=== PATIENT | female | born 2000 | race Caucasian/White ===

== ENCOUNTER → 2024-10-17 | Outpatient (CLI) | payer OTHER, SELFPAY ==
[2024-10-17 11:08] LABS: Absolute Lymphocyte Count 2.05 X10^3/uL (0.83-4.51); Absolute Neutrophil Count 5.2 X10^3/uL (2.0-7.7); Basophil# 0.06 X10^3/uL; Basophil% 0.8 % (0-1); Eosinophil# 0.16 X10^3/uL; Hematocrit 39.5 % (37-47); Hemoglobin 12.7 g/dL (12.0-15.0); Lymphocyte # 2.05 X10^3/ul (0.83-4.51); Mean Corp Hgb Conc 32.2 g/dL (32-36); Mean Corpuscular Hgb 28.4 pg (27.0-32.0); Mean Corpuscular Volume 88.4 fL (81-99); Monocyte% 5.1 % (0-10); NRBC Flagged by Analyzer 0 % (0-5); Neutrophil % 65.8 % (47-70); Platelet Count 446 K/mm3 (150-450); RBC Distribution Width CV 13.6 % (11.6-14.6); RBC Distribution Width SD 43.8 fl (35.1-43.9); Red Blood Count 4.47 M/mm3 (4.2-5.4); White Blood Count 7.9 K/mm3 (4.4-11.0)
[2024-10-17 11:34] LABS: AST(SGOT) 19 U/L (15-37); Alanine Aminotransfer ALT/SGPT 24 U/L (13-56); Albumin, Serum 3.5 g/dL (3.2-5.0); Alkaline Phosphatase 52 U/L (45-117); Anion Gap 4 (5-15); BUN 12 mg/dL (7-18); BUN/Creat Ratio 16.9 RATIO (10-20); Calcium,Total 8.9 mg/dL (8.5-10.1); Chloride 109 mmol/L (98-107); Creatinine, Serum 0.71 mg/dL (0.55-1.02); EST Glomerular Filtration Rate 108 mL/min (>60); Est Glom Filt Rate - Afr Amer 131 mL/min (>60); Globulin 3.6 g/dL (2.2-4.2); Glucose 83 mg/dL (74-106); Potassium 4.1 mmol/L (3.5-5.1); Protein, Total 7.1 g/dL (6.4-8.2); Sodium Level 138 mmol/L (136-145)
[2024-10-17 13:50] LABS: Hepatitis B Surface Antibody Reactive; Hepatitis B Surface Antigen Non-Reactive (Nonreactive); Hepatitis C Antibody Non-Reactive (Nonreactive)
[2024-10-18 05:08] LABS: Hepatitis A AB, Total Positive (Negative); Hepatitis B Core Ab Total Negative (Negative)
== END | disposition home or self-care (01) ==
PROVIDERS: PCP Internal Medicine; Referring Provider Nurse Practitioner Acute Care; Visit Provider Nurse Practitioner Acute Care
DX: R12 Heartburn (principal); R05.9 Cough, unspecified; K21.9 Gastro-esophageal reflux disease without esophagitis; E66.9 Obesity, unspecified; K76.0 Fatty (change of) liver, not elsewhere classified
CPT/HCPCS: 36415; 80053; 85025; 86704; 86706; 86708; 86803; 87340

== ENCOUNTER 2024-12-19 06:28 | Day surgery (SDC) | payer OTHER, SELFPAY ==
[2024-12-19] VITALS (8 sets, daily range): BP systolic 136–144; BP diastolic 79–97; PULSE 72–84; RESP 16–20; TEMP 35.5–36.8; O2SAT 97–100; BMI 43.3
--- NOTE | 2024-12-19 06:48 | PCM.PRE.AN2 ---
ASA Classification* ASA Classification ASA Classification: 3 Assessment & Plan Anesthesia* Anesthesia Assessment Anesthesia Assessment: Discussed sedation and/or anesthesia options, risks, benefits, and alternatives with patient/parents/legal guardian/POA. Questions invited. The patient/parents/legal guardian/POA seems to understand and agrees to proceed with anesthesia plan. Reviewed the physical assessment, medical history, allergy history and patient home medications list prior to surgery/procedure/anesthetic and documented any changes. Performed airway and anesthesia risk assessments. Anesthesia Type Anesthesia Type: MAC History Source History Obtained from:: Patient and Chart Anesthesia Focused Assessment* Temperature: 97.5 F Pulse Rate: 81 Blood Pressure: 138/95 Respiratory Rate: 16 Pulse Ox: 100 Oxygen Delivery Method: Room Air Airway Assessment Mouth opens: >3 cm Mallampati Score: IV Teeth Condition: Caps/Crowns (Right top molar has a crown. It is tight.) Neck Range of motion (ROM): Limited ROM (Slight decrease in extension) Focused Labs Anesthesia Preop lab: CBC WBC 7.9 K/mm3 (4.4-11.0) 10/17/24 10:48 10/17/24 RBC 4.47 M/mm3 (4.2-5.4) 10/17/24 10:48 10/17/24 Hgb 12.7 g/dL (12.0-15.0) 10/17/24 10:48 10/17/24 Hct 39.5 % (37-47) 10/17/24 10:48 10/17/24 Plt Count 446 K/mm3 (150-450) 10/17/24 10:48 10/17/24 CHEMISTRY Potassium 4.1 mmol/L (3.5-5.1) 10/17/24 10:48 10/17/24 Sodium 138 mmol/L (136-145) 10/17/24 10:48 10/17/24 BUN 12 mg/dL (7-18) 10/17/24 10:48 10/17/24 Creatinine 0.71 mg/dL (0.55-1.02) 10/17/24 10:48 10/17/24 Glucose 83 mg/dL (74-106) 10/17/24 10:48 10/17/24 COAG Pre-Assessment Diagnosis/Proposed Procedure Planned Operative Procedure(s): EGD Anesthesia History Anesthesia History - graphic arts technician: Anesthesia History - graphic arts technician Hx Hospitalization No 12/18/24 09:23 Any Problems With Anesthesia No 12/18/24 09:23 Cholinesterase deficiency No 12/18/24 09:23 You/Your Family Experience No 12/18/24 09:23 fever (hyperthermia) with Relationship Recent Exposure to Contagious No 12/19/24 06:42 Disease Does patient have nerve No 12/18/24 09:23 stimulator Patient instructed to have device shut off --Does patient have Pacemaker No 12/19/24 06:42 or ICD? When Was Last Pacemaker Check QUESTION #4 FULL TEXT: You/Your Family Experience fever (hyperthermia) with Anesthesia Last Oral Intake Last Oral intake: Last Oral Intake NPO since 05:30 12/19/24 06:42 Meds taken in AM with sips of Yes 12/19/24 06:42 water? Meds patient instructed to see mar 12/19/24 06:42 take am of surgery Any additional information?: Yes Meds taken in AM with sips of water?: Yes PONV PONV - graphic arts technician: PONV - graphic arts technician Female Yes 12/18/24 09:23 HX of Motion Sickness No 12/18/24 09:23 HX of N/V After Surgery Yes 12/18/24 09:23 Non-Smoker Yes 12/18/24 09:23 Duration of Surgery greater No 12/18/24 09:23 than 60 minutes Number of Risk Factors 3 12/18/24 09:23 PONV Score Moderate Risk 12/18/24 09:23 Height & Weight Height & Weight: Anesthesia: Height & Weight Height 5 ft 8 in 12/19/24 06:42 Weight: 129.274 kg 12/19/24 06:42 Body Mass Index (BMI) 43.3 12/19/24 06:42 Respiratory Assessment Respiratory Assessment - graphic arts technician: Respiratory Tract Infection Hx - graphic arts technician Hx Respiratory Tract Infection No 12/18/24 09:23 STOP Sleep Apnea STOP Sleep Apnea - graphic arts technician: STOP Sleep Apnea - graphic arts technician Hx Hypertension No 12/18/24 09:23 Hx Sleep Apnea No 12/18/24 09:23 CPAP BIPAP Do you snore loudly (louder No 12/18/24 09:23 than talking or can be heard Do you often feel tired/ No 12/18/24 09:23 fatigued/ sleepy during daytime? Has anyone observed you stop No 12/18/24 09:23 breathing during sleep? STOP Results Negative 12/18/24 09:23 QUESTION #5 FULL TEXT : Do you snore loudly (louder than talking or can be heard through closed doors)? 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 Specify any problems Hx of Preganancy in last 3 No 12/18/24 09:23 Months Nurse Filling Out Transfusion VLEHMAN 12/18/24 09:23 & Questions: Date: 12/18/24 12/18/24 09:23 Time: 12/18/24 09:23 Patient unable to answer at this time (ie. confused, unrespo /Reproduction History /Reproductive History - graphic arts technician: /Reproductive Hx- graphic arts technician Hx Now Gestational Age (in weeks): EDC: Hx Hx Para [facility] History Wears glasses Depression Anxiety Thyroid disease Difficulty swallowing Gastric reflux Migraine Major depressive disorder Anxiety disorder Liver nodule Hypothyroidism Tawana's thyroiditis Obesity GERD (gastroesophageal reflux disease) Gastroparesis Home Medications ?Medication ?Instructions ?Recorded ?Last Taken ?Type escitalopram oxalate 10 mg tablet 10 mg PO QDAY 10/17/24 Unknown History (Lexapro) lorazepam 1 mg tablet (Ativan) 1 mg PO QDAY PRN anxiety 10/17/24 12/19/24 05:30 History pantoprazole 40 mg tablet,delayed 40 mg PO .COMPLEX #90 tabs 10/17/24 Unknown Rx release Allergy/AdvReac Type Severity Reaction Status Date / Time latex Allergy Rash Verified 12/19/24 06:42 phentermine Allergy Other Verified 12/19/24 06:42 levothyroxine AdvReac Other Verified 12/19/24 06:42 lurasidone (From Latuda) AdvReac Other Verified 12/19/24 06:42 Family History Other Barretts esophagus Breast cancer Cancer of heart Prostate cancer Renal cell carcinoma Surgical History History of surgery History of foot surgery History of eye surgery Social History Smoking Status: Never smoker Review of Systems (Anesthesia) ROS Narrative System reviewed and no additional complaints, except as documented.
[2024-12-19 07:04] LABS: Internal QC Validated? YES +Cl - CLEAR BKGD; Pregnancy, Urine Negative Negative
--- NOTE | 2024-12-19 07:15 | IMM_PTH ---
PATIENT: ES YANG LOC: EN U#:[id number] AGE/SX: 24/ ROOM: RE12/19/[address]: Dr. Kenneth Mcdaniel DO : 2000 BED: DIS: 12/19/2024 SPEC #: [id number] RECD: 12/19/24 11:37 STATUS: HENRY REQ #: [id number] YOHANA: 12/19/24 07:[address]: Kenneth Mcdaniel DEPT: IMMUNOHISTOCHEMISTRY RECD BY: Leobardo Dozier ENTERED: 12/19/24 11:38 SP TYPE: IMMUNO OTHR DR: Dr. Maia Andrade MD Tissues: B - Gastric mucous membrane Procedures: H Pylori (initial) PHYSICIAN & INSTITUTION [place] [id number] SPECIMEN INFORMATION: Tissue Source: B- Antrum biopsy Clinical Info: GERD, obesity, steatosis, liver, heartburn, cough Specimen Number: [id number] CPT code: 49895 METHODOLOGY: Deparaffinized sections of prefer/formalin-fixed tissue or PAP/DQ stained slides are incubated with monoclonal/polyclonal antibodies/oligonucleotide probes. Localization is made via biotin free immunoperoxidase method. Appropriate controls are performed and reacted as expected. Results on target cell population are indicated in the following table: RESULTS: ANTIBODY / CLONE RESULT Block B H Pylori (polyclonal) negative These tests were developed and their performance characteristics determined by [facility]. They may not have been cleared or approved by the U.S. Food and Drug Administration. The FDA has determined that such clearance or approval is not necessary. The above immunohistochemical/dualISH markers are ordered and reviewed by the Pathologist. INTERPRETATION: B. Antrum, biopsy: Negative for Helicobacter pylori organisms. 12/20/2024
--- NOTE | 2024-12-19 07:15 | EGD_PTH ---
PATIENT: ES YANG LOC: EN U#:[id number] AGE/SX: 24/F ROOM: RE12/19/[address]: Dr. Kenneth Mcdaniel DO : 2000 BED: DIS: 12/19/2024 SPEC #: [id number] RECD: 12/19/24 10:24 STATUS: HENRY REJulieta #: [id number] YOHANA: 12/19/24 07:[address]: Kenneth Mcdaniel DEPT: SURGICAL PATHOLOGY RECD BY: Sho Darden ENTERED: 12/19/24 11:20 SP TYPE: EGD BIOPSY MICHELLE DR: Dr. Maia Andrade MD Tissues: A - Duodenum, NOS B - Gastric mucous membrane C - Esophagus, NOS Procedures: Special Stain Group I Surgery Specimen Level IV Alcian Blue/PAS (control) HEADER OPERATION: EGD PRE-OP DIAGNOSIS: GERD, obesity, steatosis, liver, heartburn, cough TISSUE SUBMITTED: A- Duodenum biopsy, B- Antrum biopsy, C- Distal esophagus biopsy MICROSCOPIC DIAGNOSIS A. Duodenum, biopsy: Fragments of duodenal mucosa with mild Crystal's gland hyperplasia. B. Antrum, biopsy: Mild gastritis. See microscopic description and comment. C. Distal esophagus, biopsy: Fragments of gastroesophageal mucosa with chronic inflammation. Intestinal metaplasia (goblet cell metaplasia) not identified. See comment. 12/20/2024 COMMENT B. The results of immunohistochemistry for Helicobacter pylori will be reported separately ([id number]). C. Alcian blue/PAS stain with matched control is used in the evaluation of the specimen. The specimen predominantly consists of gastric mucosa. MICROSCOPIC DESCRIPTION Slides are reviewed. B. The specimen shows fragments of gastric mucosa with chronic inflammatory cell infiltrates in the lamina propria consisting of lymphocytes and plasma cells, consistent with mild chronic gastritis. GROSS DESCRIPTION A. Received in fixative is one container labeled with the patient's name and designated Duodenum biopsy. The specimen consists of two irregular fragments of light olson soft tissue that in aggregate measure 0.6 x 0.3 x 0.2 cm. The specimen is totally submitted in one cassette. B. Received in fixative is one container labeled with the patient's name and designated Antrum biopsy. The specimen consists of two irregular fragments of light olson soft tissue that in aggregate measure 0.5 x 0.3 x 0.2 cm. The specimen is totally submitted in one cassette. C. Received in fixative is one container labeled with the patient's name and designated Distal esophagus biopsy. The specimen consists of two irregular fragments of light olson soft tissue that in aggregate measure 0.7 x 0.4 x 0.3 cm. The specimen is totally submitted in one cassette. RICHY/ 12/19/2024 TC:3 CPT:09356o9,21328
--- NOTE | 2024-12-19 07:25 | HP.PCM_ITS ---
HPI - General General Date of Admission: 12/19/24 Date of Service: 12/19/24 Chief Complaint: abdominal pain, nausea, vomiting and diarrhea HPI Narrative ES YANG, is a 24 F who presentsES YANG, is a 24 F who presents to the office today for - father just 3 days ago - renal cell carcinoma - family h/o Del Castillo's - c/o life long HB and alternating constipation and diarrhea - c/o cough - She was on Semaglutide earlier this year and reports N/V was an issue at that time, reports minimal weight loss. She reports reflux symptoms are worse since discontinuing - denies any ongoing N/V - She has gained weight with discontinuing - about 25lbs - she was one omeprazole but cannot take with escitalopram - also reports was not effective - was on pantoprazole but ran out - this was helping - regurgitation - denies any emesis - denies any nausea - Caffeine - not every day - smokes weed - none in the past 8 months - denies smoking tobacco - psoriasis - denies any family h/o celiac disease - symptoms do not worsen with laying down - denies any bleeding - denies any change in bowel habits - basle line is alternating constipation and diarrhea - she does not exercise any longer - diet is poor - ABD US showed FNH - reports she had an MRI - family h/o fatty liver - EtOH denies - NSAIDS - IBU for migraines 800mg TIW Follow Up: [facility] Medical History Wears glasses Depression Anxiety Thyroid disease Difficulty swallowing Gastric reflux Migraine Major depressive disorder Anxiety disorder Liver nodule Hypothyroidism Tawana's thyroiditis Obesity GERD (gastroesophageal reflux disease) Gastroparesis Home Medications ?Medication ?Instructions ?Recorded ?Last Taken ?Type escitalopram oxalate 10 mg tablet 10 mg PO QDAY Unknown History (Lexapro) lorazepam 1 mg tablet (Ativan) 1 mg PO QDAY PRN anxiet y 10/17/24 12/19/24 05:30 History pantoprazole 40 mg tablet,delayed 40 mg PO .COMPLEX #9 0 tabs 10/17/24 Unknown Rx release Allergy/AdvReac Type Severity Reaction Status Date / Time latex Allergy Rash Verified 12/19/24 06:42 phentermine Allergy Other Verified 12/19/24 06:42 levothyroxine AdvReac Other Verified 12/19/24 06:42 lurasidone (From Latuda) AdvReac Other Verified 12/19/24 06:42 Family History Other Barretts esophagus Breast cancer Cancer of heart Prostate cancer Renal cell carcinoma Surgical History History of surgery History of foot surgery History of eye surgery Social History Smoking Status: Never smoker ROS Constitutional Constitutional: Denies fatigue, fever(s), poor appetite, weight gain or weight l oss Gastrointestinal Gastrointestinal: Denies belching, bloating, change in bowel habits, change in stool character, chewing difficulty, coffee ground emesis, constipation, cramping, diarrhea, dyspepsia, dysphagia, early satiety, excessive flatus, fecal incontinence, heartburn, hematemesis, hematochezia, hemorrhoids, loose stools, melena, nausea, odynophagia, rectal bleeding, tenesmus, vomiting or weight changes Vital Signs Vital Signs Vital Signs: 12/19/24 06:42 12/19/24 06:42 12/19/24 06:54 Temperature 97.5 F L 97.5 F L Temperature Source Temporal Pulse Rate 81 81 Respiratory Rate 16 16 Respiratory Pattern Normal Blood Pressure 138/95 H 138/95 H Blood Pressure Mean 109 Blood Pressure Source Monitor Blood Pressure Position Sitting Blood Pressure Location Right Arm Pulse Ox 100 100 Oxygen Delivery Method Room Air Room Air Weight Weight: 285 lb Body Mass Index (BMI) 43.3 Physical Exam Const alert, oriented x3, no apparent distress and healthy appearing General Appearance: cooperative GI normal to inspection, nondistended, normoactive bowel sounds, soft to palpation, non-tender and non-distended Percussion: normal to percussion Rectal Exam: deferred Results Lab / Micro Data Labs: Laboratory Results - last 24 hr 12/19/24 06:38: Urine Test Negative Assessment & Plan Assessment/Plan (1) GERD (gastroesophageal reflux disease): (2) Heartburn: (3) Gastroparesis: (4) Diarrhea: PLAN: Assessment and Plan Assessment and Plan (1) GERD (gastroesophageal reflux disease): Status: Acute (2) Obesity: Status: Acute Qualifiers: Obesity type: due to excess calories Obesity classification: adult class 3 (BMI >= 40) Serious obesity comorbidity presence: unspecified whether serious comorbidity present Body mass index: BMI 40.0-44.9 Qualified Code(s): E66.813 - Obesity, class 3; E66.01 - Morbid (severe) obesity due to excess calories; Z68.41 - Body mass index [BMI] 40.0-44.9, adult (3) Steatosis, liver: Status: Acute (4) Heartburn: Status: Acute (5) Cough: Status: Acute Qualifiers: Cough type: chronic Qualified Code(s): R05.3 - Chronic cough (6) Obesity: Status: Acute (7) Steatosis, liver: Status: Acute Orders: Orders Abdomen Limited Today E66.9 - Obesity, unspecified, K21.9 - Gastro-esophageal reflux disease without esophagitis, K76.0 - Fatty (change of) liver, not elsewhere classified, R05.9 - Cough, unspecified, R12 - Heartburn CBC W/Diff, Automated Today E66.9 - Obesity, unspecified, K21.9 - Gastro- esophageal reflux disease without esophagitis, K76.0 - Fatty (change of) liver, not elsewhere classified, R05.9 - Cough, unspecified, R12 - Heartburn Comprehensive Metabolic Profil Today E66.9 - Obesity, unspecified, K21.9 - Gastro-esophageal reflux disease without esophagitis, K76.0 - Fatty (change of) liver, not elsewhere classified, R05.9 - Cough, unspecified, R12 - Heartburn Hepatitis A AB, Total Today E66.9 - Obesity, unspecified, K21.9 - Gastro- esophageal reflux disease without esophagitis, K76.0 - Fatty (change of) liver, not elsewhere classified, R05.9 - Cough, unspecified, R12 - Heartburn Hepatitis B Core Ab Total Today E66.9 - Obesity, unspecified, K21.9 - Gastro- esophageal reflux disease without esophagitis, K76.0 - Fatty (change of) liver, not elsewhere classified, R05.9 - Cough, unspecified, R12 - Heartburn Hepatitis B Surface Antibody Today E66.9 - Obesity, unspecified, K21.9 - Gastro-esophageal reflux disease without esophagitis, K76.0 - Fatty (change of) liver, not elsewhere classified, R05.9 - Cough, unspecified, R12 - Heartburn Hepatitis B Surface Antigen Today E66.9 - Obesity, unspecified, K21.9 - Gastro- esophageal reflux disease without esophagitis, K76.0 - Fatty (change of) liver, not elsewhere classified, R05.9 - Cough, unspecified, R12 - Heartburn Hepatitis C Antibody Today E66.9 - Obesity, unspecified, K21.9 - Gastro-esopha geal reflux disease without esophagitis, K76.0 - Fatty (change of) liver, not elsewhere classified, R05.9 - Cough, unspecified, R12 - Heartburn Miscellaneous Lab Procedure Today E66.9 - Obesity, unspecified, K21.9 - Gastro- esophageal reflux disease without esophagitis, K76.0 - Fatty (change of) liver, not elsewhere classified, R05.9 - Cough, unspecified, R12 - Heartburn Referrals Bariatric Surgery Referral E66.9 - Obesity, unspecified, K21.9 - Gastro- esophageal reflux disease without esophagitis, K76.0 - Fatty (change of) liver, not elsewhere classified Medications: New pantoprazole 40 mg orally 30 minutes before breakfast every morning; 90 tabs 1RF Plan A 24-year-old female patient presents for a consultation, reporting lifelong symptoms of gastroesophageal reflux disease (GERD), including chronic cough, and nausea; additionally she experiences alternating constipation and diarrhea. Her past medical history is significant for Tawana's thyroiditis, and her family history includes Del Castillo's esophagus. She complains of persistent heartburn, a globus sensation, and a cough that worsens with oral intake. These symptoms have been present for years but have worsened since she discontinued Semaglutide in December. She also reports a 25-pound weight gain over the last 10 months. She denies any difficulty swallowing. In the past, she noted improvement in her symptoms while taking daily pantoprazole, and I will have her resume this medication. Dietary modifications and limiting the use of non-steroidal medications have been discussed. An esophagogastroduodenoscopy (EGD) has been scheduled. She also reports a history of focal nodular hyperplasia (FNH) and liver steatosis. I have discussed the potential for metabolic-associated fatty liver disease (MASLD) in detail and ordered an abdominal ultrasound, relevant laboratory tests, and elastography. She has also been provided a referral to Dr. Alvaro Wilson at the [facility] for further evaluation and management of obesity. Patient Instructions: 1. EGD 2. Resume pantoprazole 40mg daily, take 30 minutes before breakfast every morning 3. High fiber diet encouraged 4. Continue good water intake 5. Start a daily fiber supplement (Metamucil 2tsp once daily in 8 ounces of water OR Fibercon 2 tablets once daily with 8 ounces of water) 6. ABD US - complete at [place] for comparison to prior imaging 7. Elastography - [facility] 8. Referral to Dr. Wilson - B[facility] Surgery Clinic 9. Have labs completed at [facility] 10. Follow-up in office 2 weeks post EGD 11. I have encouraged dietary modifications and exercise to promote weight loss Plan Details Follow Up:
--- NOTE | 2024-12-19 07:51 | OP.EGD_ITS ---
Patient Name: Elvira Leahy Procedure Date: 12/19/2024 7:31 AM Date of : 2000 Age: 24 Procedure: Upper GI endoscopy Indications: Epigastric abdominal pain, Dyspepsia Providers: Kenneth Mcdaniel DO Referring MD: Maia Andrade Md Medicines: Monitored Anesthesia Care Patient Profile: This is a 24 year old female. Refer to note in patient chart for documentation of history and physical. Patient has symptoms of chronic abdominal distention, chronic epigastric abdominal pain, chronic nausea, chronic regurgitation, chronic throat burning and chronic vomiting. Complications: No immediate complications. Procedure: Pre-Anesthesia Assessment: - Prior to the procedure, a History and Physical was performed, and patient medications and allergies were reviewed. The patient is competent. The risks and benefits of the procedure and the sedation options and risks were discussed with the patient. All questions were answered and informed consent was obtained. Patient identification and proposed procedure were verified by the physician in the pre-procedure area. Mental Status Examination: alert and oriented. Airway Examination: normal oropharyngeal airway and neck mobility. Respiratory Examination: clear to auscultation. CV Examination: normal. Prophylactic Antibiotics: The patient does not require prophylactic antibiotics. Prior Anticoagulants: The patient has taken no anticoagulant or antiplatelet agents except for NSAID medication. ASA Grade Assessment: II - A patient with mild systemic disease. After reviewing the risks and benefits, the patient was deemed in satisfactory condition to undergo the procedure. The anesthesia plan was to use monitored anesthesia care (MAC). Immediately prior to administration of medications, the patient was re-assessed for adequacy to receive sedatives. The heart rate, respiratory rate, oxygen saturations, blood pressure, adequacy of pulmonary ventilation, and response to care were monitored throughout the procedure. The physical status of the patient was re-assessed after the procedure. After obtaining informed consent, the endoscope was passed under direct vision. Throughout the procedure, the patient's blood pressure, pulse, and oxygen saturations were monitored continuously. The Endoscope was introduced through the mouth, and advanced to the second part of duodenum. The upper GI endoscopy was accomplished without difficulty. The patient tolerated the procedure well. Scope In: 7:40:46 AM Scope Out: 7:45:09 AM Total Procedure Duration Time 0 hours 4 minutes 23 seconds Findings: The Z-line was irregular and was found 40 cm from the incisors. Biopsies were taken with a cold forceps for histology. Verification of patient identification for the specimen was done. Estimated blood loss was minimal. A medium-sized hiatal hernia was present. Localized mildly erythematous mucosa was found in the gastric antrum. Biopsies were taken with a cold forceps for histology. Verification of patient identification for the specimen was done. Estimated blood loss was minimal. Biopsies were taken with a cold forceps for Helicobacter pylori testing. Verification of patient identification for the specimen was done. Estimated blood loss was minimal. Patchy moderately erythematous mucosa without active bleeding and with no stigmata of bleeding was found in the first portion of the duodenum. Biopsies were taken with a cold forceps for histology. Verification of patient identification for the specimen was done. Estimated blood loss was minimal. Impression: - Z-line irregular, 40 cm from the incisors. Biopsied. - Medium-sized hiatal hernia. - Erythematous mucosa in the antrum. Biopsied. - Erythematous duodenopathy. Biopsied. Recommendation: - Discharge patient to home. - Resume previous diet. - Continue present medications. - Await pathology results. Procedure Code(s): --- Professional --- 24114, Esophagogastroduodenoscopy, flexible, transoral; with biopsy, single or multiple CPT copyright 2021 [employer]. All rights reserved. The codes documented in this report are preliminary and upon medical records coder review may be revised to meet current compliance requirements. Kenneth Mcdaniel DO 12/19/2024 7:51:09 AM This report has been signed electronically. Number of Addenda: 0 Note Initiated On: 12/19/2024 7:31 AM
--- NOTE | 2024-12-19 07:51 | OP.CCLET_ITS ---
12/19/2024 Maia Andrade Md Re : Upper GI endoscopy procedure for Elvira Leahy Dear Dr. Andrade This procedure was performed on December. My impressions and recommendations are as follows: Impressions : - Z-line irregular, 40 cm from the incisors. Biopsied. - Medium-sized hiatal hernia. - Erythematous mucosa in the antrum. Biopsied. - Erythematous duodenopathy. Biopsied. Recommendations : - Discharge patient to home. - Resume previous diet. - Continue present medications. - Await pathology results. My findings are described in the full procedure note, which is enclosed. If I can be of further assistance, please feel free to contact me at . Sincerely, Kenneth Mcdaniel, 12/19/2024 7:51:09 AM This report has been signed electronically.
--- NOTE | 2024-12-19 07:52 | PCM.POST.ANE ---
Anesthesia: Postop Eval I Current Vital Signs Temperature: 96 F Pulse Rate: 84 Blood Pressure: 138/79 Respiratory Rate: 20 Pulse Ox: 99 Oxygen Delivery Method: Room Air Assessment Airway patent: Yes Spontaneous unlabored respirations: Yes Mental status: Awake nausea: No Vomiting: No Anesthesia Complication: No Fluid Hydration Crystalloid volume administer (ml): 10 Total IV fluid infused: 10 Progress Note Anesthesia document: Postop Eval 1 completed: Yes
[2024-12-19] MEDS: Ondansetron 4 MG/2 ML Vial IV (08:00)
--- NOTE | 2024-12-19 10:42 | POSTOPAN2_ITS ---
Anesthesia Postop Eval I Sum Postop Eval Completion status Anesthesia document: Postop Eval 1 completed: Yes Anesthesia Postop Eval I Summary Anesthesia Postop Eval I Summary: Anesthesia Postop Eval I: Assessment Summary Airway patent Yes 12/19/24 07:53 COTTAGE ATTENDANT.[email or web address] Spontaneous unlabored Yes 12/19/24 07:53 COTTAGE ATTENDANT.[email or web address] respirations Mental status Awake 12/19/24 07:53 COTTAGE ATTENDANT.[email or web address] nausea No 12/19/24 07:53 COTTAGE ATTENDANT.JSWI Vomiting No 12/19/24 07:53 COTTAGE ATTENDANT.JSWI Anesthesia Postop Eval I: Fluid Summary Crystalloid volume administer 10 12/19/24 07:53 COTTAGE ATTENDANT.[email or web address] (ml) Colloids volume administered ( ml) Blood Product volume administered (ml) Total IV fluid infused 10 12/19/24 07:53 COTTAGE ATTENDANT.[email or web address] Anesthesia Postop Eval I: Summary Notes Anesthesia Complication No 12/19/24 07:53 COTTAGE ATTENDANT.JSWI Anesthesia Complication Comment: Post-operative progress note Anesthesia: Postop Eval II Evaluation Mental status: Awake and Calm Pain Level: 0 nausea: No Vomiting: No
--- NOTE | 2024-12-19 10:42 | PCM.POSTANE2 ---
Anesthesia Postop Eval I Sum Postop Eval Completion status Anesthesia document: Postop Eval 1 completed: Yes Anesthesia Postop Eval I Summary Anesthesia Postop Eval I Summary: Anesthesia Postop Eval I: Assessment Summary Airway patent Yes 12/19/24 07:53 HEEL [email or web address] Spontaneous unlabored Yes 12/19/24 07:53 HEEL BURNISHER.JSWI respirations Mental status Awake 12/19/24 07:53 HEEL BURNISHER.[email or web address] nausea No 12/19/24 07:53 HEEL BURNISHER.JSWI Vomiting No 12/19/24 07:53 HEEL BURNISHER.[email or web address] Anesthesia Postop Eval I: Fluid Summary Crystalloid volume administer 10 12/19/24 07:53 HEEL BURNISHER.JSWI (ml) Colloids volume administered ( ml) Blood Product volume administered (ml) Total IV fluid infused 10 12/19/24 07:53 HEEL BURNISHER.JSWI Anesthesia Postop Eval I: Summary Notes Anesthesia Complication No 12/19/24 07:53 HEEL BURNISHER.JSWI Anesthesia Complication Comment: Post-operative progress note Anesthesia: Postop Eval II Evaluation Mental status: Awake and Calm Pain Level: 0 nausea: No Vomiting: No
== END 2024-12-19 08:33 | disposition home or self-care (01) ==
LOC: EN 06:29 → AC 06:31
PROVIDERS: Anesthesiology; PCP Internal Medicine; Referring Provider Internal Medicine; Visit Provider Internal Medicine Gastroenterology
PROC: 0DJ08ZZ Inspection of Upper Intestinal Tract, Via Natural or Artificial Opening Endoscopic (ICD-10-PCS; CPT 43235; principal; 2024-12-19 07:10)
DX: K21.00 Gastro-esophageal reflux disease with esophagitis, without bleeding (principal); E66.01 Morbid (severe) obesity due to excess calories; Z68.41 Body mass index [BMI] 40.0-44.9, adult; E66.813 Obesity, class 3; K44.9 Diaphragmatic hernia without obstruction or gangrene; K31.84 Gastroparesis; K29.70 Gastritis, unspecified, without bleeding
CPT/HCPCS: 43239; 81025; 88305; 88312; 88342; A4216; J2405